=== PATIENT | male | born 1980 | race Hispanic/Latino ===

== ENCOUNTER 2022-02-01 18:18 | Emergency (ER) | payer OTHER ==
[~2022-02-01] VITALS: Ht 180.3 cm; Wt 104.3 kg
== END 2022-02-01 19:30 | disposition home or self-care (01) ==
LOC: ER 18:23
DX: S61.512A Laceration without foreign body of left wrist, initial encounter (principal); W20.8XXA Other cause of strike by thrown, projected or falling object, initial encounter; Y92.89 Other specified places as the place of occurrence of the external cause; I10 Essential (primary) hypertension; E78.5 Hyperlipidemia, unspecified; I25.2 Old myocardial infarction; Z95.810 Presence of automatic (implantable) cardiac defibrillator
CPT/HCPCS: 99283